=== PATIENT | male | born 2000 | race Hispanic/Latino ===

== ENCOUNTER 2021-04-30 14:17 | Emergency (ER) | payer OTHER ==
[~2021-04-30] VITALS: Ht 177.8 cm; Wt 86.2 kg
[2021-04-30] MEDS ORDERED: ACETAMINOPHEN 325 MG TAB PO ONE (14:45)
[2021-04-30] MEDS ORDERED: TETANUS/DIPHTHERIA TOXOID [ADULT] 0.5 ML VIAL IM SCH (14:45)
[2021-04-30 15:23] VITALS: BP 127/82
[2021-04-30] MEDS ORDERED: ACET325C6 PO (15:31)
[2021-04-30] MEDS ORDERED: CEPH500B PO (15:35)
== END 2021-04-30 15:41 | disposition home or self-care (01) ==
LOC: EDH 14:35
DX: S91.331A Puncture wound without foreign body, right foot, initial encounter (principal); W26.8XXA Contact with other sharp object(s), not elsewhere classified, initial encounter; Y93.01 Activity, walking, marching and hiking; Y92.832 Beach as the place of occurrence of the external cause; Y99.8 Other external cause status
CPT/HCPCS: 73600; 73630; 90471; 90714